=== PATIENT | male | born 1950 | race Caucasian/White ===

== ENCOUNTER → 2020-08-11 | Outpatient (CLI) | payer MEDICARE, BC | LOC: MRI 08-06 08:18 | PROVIDERS: ATTEND Anesthesiology Pain Medicine | DX: M25.562 Pain in left knee (principal); S83.282A Other tear of lateral meniscus, current injury, left knee, initial encounter; S83.242A Other tear of medial meniscus, current injury, left knee, initial encounter; S83.522A Sprain of posterior cruciate ligament of left knee, initial encounter; M25.462 Effusion, left knee; M65.862 Other synovitis and tenosynovitis, left lower leg ==